=== PATIENT | female | born 1945 | race Caucasian/White ===

== ENCOUNTER 2018-09-14 12:53 | Outpatient (CLI) | payer MEDICARE ==
--- NOTE | 2018-09-14 16:30 | MRI ---
MRI LUMBAR SPINE: History: Back pain. M51.36 Technique: Multiplanar, multisequence noncontrast enhanced MRI images of the lumbar spine were obtain ed. FINDINGS: T12-L1: There is disc space height loss and disc desiccation. There is a broad based disc bulge with bilateral facet and ligamentum flavum hypertrophy resulting in mild central and lateral recess stenos is. The neural foramen are patent. L1-2: Disc desiccation is seen. There is broad based disc bulge with bilateral facet and ligamentum f lavum hypertrophy as well as congenitally short pedicles. This results in a moderate degree of centra l and lateral recess stenosis at L1-2. There is moderate bilateral neural foraminal narrowing. L2-3: Disc desiccation is seen. There is disc space height loss. There is broad based disc osteophyte complex compressing the thecal sac. Severe facet and ligamentum flavum hypertrophy is seen resulting in severe L2-3 central and lateral recess stenosis. There is moderate right and mild left sided neur al foraminal narrowing due to facet hypertrophic changes as well as the broad based disc bulge. L3-4: Disc desiccation is seen. There is broad based disc osteophyte complex centrally compressing th e thecal sac. Severe facet and ligamentum flavum hypertrophy is also present. This results in L3-4 ce ntral and lateral recess stenosis. There is moderate right and left neural foraminal narrowing due to facet hypertrophic changes. L4-5: Disc desiccation is seen. There is a broad based central disc protrusion. Bilateral facet and l igamentum flavum hypertrophy is seen. This results in a moderate degree of central and lateral recess stenosis. There is moderate right and severe left sided neural foraminal narrowing due to facet hype rtrophy as well as broad based disc protrusions extending to the neural foramen. L5-S1: Disc desiccation is seen. There is an annular fissure seen along the posterior aspect of the a nulus fibrosis. Mild bilateral facet hypertrophy is present. No significant degree of central stenosi s is seen. The neural foramen are patent. IMPRESSION: 1. Significant central stenosis and lateral recess stenosis at L2-3, L3-4, and to a lesser degree, th e L4-5 level. POS: DEBORAH
== END 2018-09-14 12:54 | disposition home or self-care (01) ==
LOC: TBSIIMAG 12:53
PROVIDERS: ATTEND Neurological Surgery
DX: M51.36 Other intervertebral disc degeneration, lumbar region (principal); M48.061 Spinal stenosis, lumbar region without neurogenic claudication
CPT/HCPCS: 72148

== ENCOUNTER 2018-10-03 16:33 | Outpatient (CLI) | payer MEDICARE ==
[2018-10-03 17:41] LABS: Hemoglobin 16.5 g/dL (12.0-16.0); Mean Corpuscular HGB CONC 31.9 g/dL (32.0-36.0); Mean Corpuscular Hemoglobin 28.8 pg (27.0-31.0); Mean Corpuscular Volume 90.3 fL (78.0-98.0); Mean Platelet Volume 7.5 fL (7.4-10.4); Platelet Count 315 thou/uL (130-400); RBC Distribution Width 12.8 % (11.5-14.5); Red Blood Cell (RBC) Count 5.72 mill/uL (4.20-5.40); White Blood Cell (WBC) Count 11.2 thou/uL (4.8-10.8)
[2018-10-03 18:05] LABS: Anion Gap 15 mmol/L (10-20); BUN (Urea Nitrogen) 18 mg/dL (9.8-20.1); Calc. Creatinine Clearance 0 mL/min (70-130); Calcium 10.2 mg/dL (7.8-10.44); Carbon Dioxide 24 mmol/L (23-31); Chloride 98 mmol/L (98-107); Estimated GFR-MDRD 76; Glucose 107 mg/dL (83-110); Potassium 3.8 mmol/L (3.5-5.1); Sodium 133 mmol/L (136-145)
--- NOTE | 2018-10-07 10:26 | EKG ---
Test Reason : Blood Pressure : / mmHG Vent. Rate : 086 BPM Atrial Rate : 086 BPM P-R Int : 160 ms QRS Dur : 074 ms QT Int : 370 ms P-R-T Axes : 060 059 035 degrees QTc Int : 442 ms Normal sinus rhythm Low voltage QRS Borderline ECG No previous ECGs available Confirmed by DR. Juan FOOTE ([id number]) on 10/07/2018 10:26:06 AM Referred By: RICK Confirmed By:DR. Juan FOOTE
== END 2018-10-03 16:34 | disposition home or self-care (01) ==
LOC: LABBT 16:33
PROVIDERS: ATTEND Neurological Surgery
DX: Z01.818 Encounter for other preprocedural examination (principal); M48.062 Spinal stenosis, lumbar region with neurogenic claudication
CPT/HCPCS: 80048; 85027; 93005; 93010

== ENCOUNTER 2018-10-04 06:01 | Observation (INO) | payer MEDICARE ==
[2018-10-04] MEDS ORDERED: CEFAZOLIN 2 GM/50 ML BAG ONE (06:17)
[2018-10-04] MEDS ORDERED: Midazolam HCl 2 mg/2 ml Vial ONE (06:55)
[2018-10-04] MEDS ORDERED: Fentanyl 250 MCG/5 ML VIAL ONE (06:55)
[2018-10-04] MEDS ORDERED: Lidocaine 4% Topical Sol 50 ML BOT ONE (07:18)
[2018-10-04] MEDS ORDERED: HYDROmorphone 2 MG/ML VIAL ONE (09:00)
[2018-10-04] MEDS ORDERED: Milk Of Magnesia 30 ML UDCUP PO PRN (09:16)
[2018-10-04] MEDS ORDERED: HYDROcodone/Acetaminophen 10/325 mg Tablet PO PRN (09:16)
[2018-10-04] MEDS ORDERED: diphenhydrAMINE 50 MG/ML VIAL IVP PRN (09:16)
[2018-10-04] MEDS ORDERED: Promethazine HCl 12.5 MG SUPP PR PRN (09:16)
[2018-10-04] MEDS ORDERED: diphenhydrAMINE 25 MG CAP PO PRN (09:16)
[2018-10-04] MEDS ORDERED: Mag-Al 1200 mg/1200 mg/30 ML UDCUP PO PRN (09:16)
[2018-10-04] MEDS ORDERED: tiZANidine HCl 4 MG TAB PO PRN (09:16)
[2018-10-04] MEDS ORDERED: Promethazine HCl 25 MG/ML VIAL IM PRN (09:16)
[2018-10-04] MEDS ORDERED: Promethazine 25 MG TAB PO PRN (09:16)
[2018-10-04] MEDS ORDERED: Morphine 4 MG/ML VIAL SLOW IVP PRN (09:16)
[2018-10-04] MEDS ORDERED: traMADol HCl 50 MG TAB PO PRN ×3 (09:16→12:07)
[2018-10-04] MEDS ORDERED: Ondansetron PF 4 MG/2 ML Vial IM PRN (09:22)
--- NOTE | 2018-10-04 09:41 | OP ---
DATE OF PROCEDURE: 10/04/2018 SURGEON: Ramana Irving M.D. DAIRY CONSULTANT: Mansi Clarke PA-C. PROCEDURE: L2 through L4 laminectomies. PROCEDURE IN DETAIL: The patient was brought to the operating room and intubated. She was rolled in the prone position on gel-filled chest rolls. An incision was made exposing L2 through L4 and our l evel was confirmed by x-ray. We performed complete L4, complete L3 and inferior L2 laminectomies, co mpletely decompressing L2 through L4. The wound was then extensively irrigated. Immaculate hemostas is was secured. Vancomycin powder was applied. The wound was closed in anatomic layers over a drain .
[2018-10-04] MEDS ORDERED: Fentanyl 100 MCG/2 ML VIAL ONE (09:44)
[2018-10-04] MEDS: Sodium Chloride 0.9% 1,000 ML IV SCH ×2 (10:48→23:26)
[2018-10-04 11:08] VITALS: BMI 29.7
--- NOTE | 2018-10-04 12:05 | PDOC.PN ---
- Subjective Encounter Start Date: 10/04/18 Encounter Start Time: 11:30 -: old records requested/rev Patient seen and examined. No new complaints. pt has chronic low back pain with lumbar stenosis, affecting her quality of life and pain was not controlled pt was admitted for lumbar laminectomy and done today we are consulted for medical management - Objective MAR Reviewed: Yes Vital Signs & Weight: Vital Signs (12 hours) Temp Pulse Resp BP Pulse Ox 10/04/18 11:35 98.0 F 82 12 118/76 92 L 10/04/18 10:44 98.2 F 84 18 144/84 H 98 Weight Weight 178 lb 12.8 oz Phys Exam - Physical Examination Constitutional: NAD HEENT: PERRLA, moist MMs, sclera anicteric Neck: no JVD, supple Respiratory: no wheezing, no rales, no rhonchi Cardiovascular: RRR, no significant murmur, no rub Gastrointestinal: soft, non-tender, no distention, positive bowel sounds Musculoskeletal: no edema, pulses present Neurological: non-focal, normal sensation, moves all 4 limbs Psychiatric: normal affect Skin: no rash, normal turgor Dx/Plan (1) S/P lumbar laminectomy Code(s): Z98.890 - OTHER SPECIFIED POSTPROCEDURAL STATES Status: Acute (2) Diabetes type 2, controlled Code(s): E11.9 - TYPE 2 DIABETES MELLITUS WITHOUT COMPLICATIONS Status: Chronic (3) Diverticulosis of colon Code(s): K57.30 - DVRTCLOS OF LG INT W/O PERFORATION OR ABSCESS W/O BLEEDING Status: Chronic (4) GERD (gastroesophageal reflux disease) Code(s): K21.9 - GASTRO-ESOPHAGEAL REFLUX DISEASE WITHOUT ESOPHAGITIS Status: Chronic (5) Hypertension Code(s): I10 - ESSENTIAL (PRIMARY) HYPERTENSION Status: Chronic (6) Lumbar stenosis Code(s): M48.061 - SPINAL STENOSIS, LUMBAR REGION WITHOUT NEUROGENIC ERIN Status: Chronic - Plan cont current plan of care, plan discussed w/ family * medication reviewed as below * symptomatic treatment * home medication reconciled * hyperglycemia protocol treatment * discussed with family bedside * medically stable * pain controlled * ambulate as tolerated * discharge per primary team. * code status addressed and pt is full code * hold BP meds for SBP <120 * add pepcid 20 mg po bid Review of Systems - Review of Systems ENT: negative: Ear Pain, Ear Discharge, Nose Pain, Nose Discharge, Nose Congestion, Mouth Pain, Mouth Swelling, Throat Pain, Throat Swelling, Other Respiratory: negative: Cough, Dry, Shortness of Breath, Hemoptysis, SOB with Excertion, Pleuritic Pain, Sputum, Wheezing Cardiovascular: negative: chest pain, palpitations, orthopnea, paroxysmal nocturnal dyspnea, edema, light headedness, other Gastrointestinal: negative: Nausea, Vomiting, Abdominal Pain, Diarrhea, Constipation, Melena, Hematochezia, Other Genitourinary: negative: Dysuria, Frequency, Incontinence, Hematuria, Retention , Other Musculoskeletal: negative: Neck Pain, Shoulder Pain, Arm Pain, Back Pain, Hand Pain, Leg Pain, Foot Pain, Other Skin: negative: Rash, Lesions, Demetrius, Bruising, Other - Medications/Allergies Allergies/Adverse Reactions: Allergies Allergy/AdvReac Type Severity Reaction Status Date / Time nut - unspecified Allergy Severe Anaphylaxis Verified 10/04/18 11:17 insect venom Allergy Intermediate Rash Verified 10/04/18 11:17 Medications: Current Medications Hydrocodone Bitart/Acetaminophen ([place] 10/325) 1 tab PO Q4H PRN PRN Reason: PAIN (1-3) Hydrocodone Bitart/Acetaminophen ([place] 10/325) 2 tab PO Q4H PRN PRN Reason: PAIN (4-6) Al Hydroxide/Mg Hydroxide (Maalox) 30 ml PO Q4H PRN PRN Reason: Heartburn or Indigestion Cefazolin Sodium/Dextrose (Ancef 2 Gm/50 Ml) 2 gm IVPB Q8HR [facility] Diphenhydramine HCl (Benadryl) 25 mg PO Q6H PRN PRN Reason: Itching Diphenhydramine HCl (Benadryl) 25 mg IVP Q6H PRN PRN Reason: Itching Sodium Chloride (Normal Saline 0.9%) 1,000 mls @ 75 mls/hr IV .[id number] [facility] Last Admin: 10/04/18 10:48 Dose: Not Given Magnesium Hydroxide (Milk Of Magnesium) 30 ml PO Q12H PRN PRN Reason: Constipation Morphine Sulfate (Morphine) 2 mg SLOW IVP Q1H PRN PRN Reason: Moderate Breakthrough Pain Morphine Sulfate (Morphine) 4 mg SLOW IVP Q1H PRN PRN Reason: SEVERE BREAKTHROUGH PAIN Ondansetron HCl (Zofran) 4 mg IM Q8H PRN PRN Reason: Nausea/Vomiting Promethazine HCl (Phenergan) 12.5 mg IM Q4H PRN PRN Reason: Nausea/Vomiting Promethazine HCl (Phenergan) 12.5 mg PO Q4H PRN PRN Reason: Nausea/Vomiting Promethazine HCl (Phenergan Suppository) 12.5 mg [place] Q4H PRN PRN Reason: Nausea/Vomiting Sodium Chloride (Flush - Normal Saline) 10 ml IVF PRN PRN PRN Reason: Saline Flush Tizanidine HCl (Zanaflex) 4 mg PO Q6H PRN PRN Reason: MUSCLE SPASM Tramadol HCl (Ultram) 50 mg PO Q6H PRN PRN Reason: PAIN (1-3) Tramadol HCl (Ultram) 100 mg PO Q6H PRN PRN Reason: PAIN (4-6)
[2018-10-04] MEDS ORDERED: Loperamide HCl 2 MG CAP PO PRN (12:06)
[2018-10-04] MEDS ORDERED: Diabetic Tussin 200 MG/10 ML UDCUP PO PRN (12:06)
[2018-10-04] MEDS ORDERED: HumaLOG 300 UNITS/3 ML VIAL SC PRN ×2 (12:06)
[2018-10-04] MEDS ORDERED: Zolpidem Tartrate 5 MG TAB PO PRN (12:06)
[2018-10-04] MEDS ORDERED: Senokot S 8.6-50 MG TAB PO PRN (12:06)
[2018-10-04] MEDS ORDERED: Cepastat Lozenges 1 LOZ PO PRN (12:06)
[2018-10-04] MEDS ORDERED: Eucerin (Mineral Oil/Petrolatum,White) 30 gm Jar TOP PRN (12:06)
[2018-10-04] MEDS ORDERED: Dextrose 5% in Water 1,000 ML IV PRN (12:06)
[2018-10-04] MEDS ORDERED: hydrALAZINE 20 MG/ML VIAL SLOW IVP PRN (12:06)
[2018-10-04] MEDS ORDERED: Sodium Chloride 0.65% Nasal 44 ML BOT EA NARE PRN (12:06)
[2018-10-04] MEDS ORDERED: Dextrose 50% Abboject 50 ML SYRINGE SLOW IVP PRN (12:06)
[2018-10-04] MEDS ORDERED: Bisacodyl 5 MG TAB PO PRN (12:06)
[2018-10-04] MEDS ORDERED: Artificial Tears 18 DROP/0.9 ML EA EYE PRN (12:06)
[2018-10-04] MEDS: CEFAZOLIN 2 GM/50 ML BAG IVPB SCH ×2 (13:16→21:11)
[2018-10-04] MEDS: HYDROcodone/Acetaminophen 10/325 mg Tablet PO PRN ×2 (13:16→17:43)
[2018-10-04] MEDS ORDERED: Lidocaine 1% PF 5 ML VIAL ONE (17:04)
[2018-10-04] MEDS ORDERED: Ketorolac Tromethamine 30 MG/ML VIAL ONE (17:04)
[2018-10-04] MEDS ORDERED: PROPOFOL 200 MG/20 ML VIAL ONE (17:04)
[2018-10-04] MEDS ORDERED: Glycopyrrolate 0.2 MG/ML 5 ML SYRINGE ONE (17:04)
[2018-10-04] MEDS ORDERED: Ondansetron PF 4 MG/2 ML Vial ONE (17:04)
[2018-10-04] MEDS ORDERED: Dexamethasone 20 MG/5 ML VIAL ONE (17:04)
[2018-10-04] MEDS: Famotidine 20 MG TAB PO SCH (21:11)
[2018-10-04] MEDS: Propranolol HCl LA 80 MG CAP PO SCH (21:11)
[2018-10-05] MEDS: HYDROcodone/Acetaminophen 10/325 mg Tablet PO PRN ×3 (00:44→11:31)
[2018-10-05] MEDS: CEFAZOLIN 2 GM/50 ML BAG IVPB SCH (06:22)
[2018-10-05] MEDS ORDERED: metFORMIN 500 MG TAB PO SCH (08:00)
[2018-10-05] MEDS: Famotidine 20 MG TAB PO SCH (08:57)
[2018-10-05] MEDS ORDERED: Triamterene/Hydrochlorothiazide 37.5 mg/25 mg Tablet PO SCH (09:00)
[2018-10-05] MEDS: Propranolol HCl LA 80 MG CAP PO SCH (09:04)
--- NOTE | 2018-10-05 09:32 | PDOC.PN ---
- Subjective Encounter Start Date: 10/05/18 Encounter Start Time: 08:10 -: old records requested/rev Patient seen and examined. No new complaints. No overnight events - Objective Resuscitation Status: Resuscitation Status FULL:Full Resuscitation MAR Reviewed: Yes Vital Signs & Weight: Vital Signs (12 hours) Temp Pulse Resp BP Pulse Ox 10/05/18 07:44 97.8 F 74 18 124/63 94 L 10/05/18 04:31 98.3 F 82 18 127/67 95 10/05/18 00:17 98.2 F 89 18 113/67 97 Weight Weight 178 lb 12.8 oz I&O: 10/04/18 10/05/18 10/06/18 06:59 06:59 06:59 Intake Total 2049 Output Total 135 Balance 1915 Additional Labs: Accuchecks 10/05/18 10/04/18 10/04/18 05:41 21:46 15:27 POC Glucose 180 H 270 H 218 H Phys Exam - Physical Examination Constitutional: NAD HEENT: PERRLA, moist MMs, sclera anicteric Neck: no JVD, supple Respiratory: no wheezing, no rales, no rhonchi Cardiovascular: RRR, no significant murmur, no rub Gastrointestinal: soft, non-tender, no distention, positive bowel sounds Musculoskeletal: no edema, pulses present Neurological: non-focal, normal sensation, moves all 4 limbs Psychiatric: normal affect, A&O x 3 Skin: no rash, normal turgor Dx/Plan (1) S/P lumbar laminectomy Code(s): Z98.890 - OTHER SPECIFIED POSTPROCEDURAL STATES Status: Acute (2) Diabetes type 2, controlled Code(s): E11.9 - TYPE 2 DIABETES MELLITUS WITHOUT COMPLICATIONS Status: Chronic (3) Diverticulosis of colon Code(s): K57.30 - DVRTCLOS OF LG INT W/O PERFORATION OR ABSCESS W/O BLEEDING Status: Chronic (4) GERD (gastroesophageal reflux disease) Code(s): K21.9 - GASTRO-ESOPHAGEAL REFLUX DISEASE WITHOUT ESOPHAGITIS Status: Chronic (5) Hypertension Code(s): I10 - ESSENTIAL (PRIMARY) HYPERTENSION Status: Chronic (6) Lumbar stenosis Code(s): M48.061 - SPINAL STENOSIS, LUMBAR REGION WITHOUT NEUROGENIC ERIN Status: Chronic - Plan cont current plan of care * medication reviewed as below * symptomatic treatment * medically stable * pt is planned for discharge * resume home meds on discharge. Review of Systems - Review of Systems ENT: negative: Ear Pain, Ear Discharge, Nose Pain, Nose Discharge, Nose Congestion, Mouth Pain, Mouth Swelling, Throat Pain, Throat Swelling, Other Respiratory: negative: Cough, Dry, Shortness of Breath, Hemoptysis, SOB with Excertion, Pleuritic Pain, Sputum, Wheezing Cardiovascular: negative: chest pain, palpitations, orthopnea, paroxysmal nocturnal dyspnea, edema, light headedness, other Gastrointestinal: negative: Nausea, Vomiting, Abdominal Pain, Diarrhea, Constipation, Melena, Hematochezia, Other Genitourinary: negative: Dysuria, Frequency, Incontinence, Hematuria, Retention , Other Musculoskeletal: negative: Neck Pain, Shoulder Pain, Arm Pain, Back Pain, Hand Pain, Leg Pain, Foot Pain, Other Skin: negative: Rash, Lesions, Demetrius, Bruising, Other - Medications/Allergies Allergies/Adverse Reactions: Allergies Allergy/AdvReac Type Severity Reaction Status Date / Time nut - unspecified Allergy Severe Anaphylaxis Verified 10/04/18 11:17 insect venom Allergy Intermediate Rash Verified 10/04/18 11:17 Medications: Current Medications Hydrocodone Bitart/Acetaminophen ([place] 10/325) 1 tab PO Q4H PRN PRN Reason: PAIN (1-3) Hydrocodone Bitart/Acetaminophen ([place] 10/325) 2 tab PO Q4H PRN PRN Reason: PAIN (4-6) Last Admin: 10/05/18 06:21 Dose: 2 tab Al Hydroxide/Mg Hydroxide (Maalox) 30 ml PO Q4H PRN PRN Reason: Heartburn or Indigestion Artificial Tears (Tears Naturale) 2 drop EA EYE PRN PRN PRN Reason: Dry Eyes Bisacodyl (Dulcolax) 10 mg PO DAILYPRN PRN PRN Reason: Constipation Captopril (Capoten) 50 mg PO BID [facility] Last Admin: 10/05/18 08:57 Dose: 50 mg Cefazolin Sodium/Dextrose (Ancef 2 Gm/50 Ml) 2 gm IVPB Q8HR [facility] Last Admin: 10/05/18 06:22 Dose: 2 gm Dextrose/Water (Dextrose 50%) 25 gm SLOW IVP PRN PRN PRN Reason: Hypoglycemia Diphenhydramine HCl (Benadryl) 25 mg PO Q6H PRN PRN Reason: Itching Diphenhydramine HCl (Benadryl) 25 mg IVP Q6H PRN PRN Reason: Itching Famotidine (Pepcid) 20 mg PO BID [facility] Last Admin: 10/05/18 08:57 Dose: 20 mg Glucagon (Glucagon) 1 mg IM PRN PRN PRN Reason: Hypoglycemia Guaifenesin (Robitussin Sf) 200 mg PO Q4H PRN PRN Reason: Cough Hydralazine HCl (Apresoline) 10 mg SLOW IVP Q4H PRN PRN Reason: SBP > 180 and HR < 70 Sodium Chloride (Normal Saline 0.9%) 1,000 mls @ 75 mls/hr IV .[id number] [facility] Last Admin: 10/04/18 23:26 Dose: Not Given Dextrose/Water (D5w) 1,000 mls @ 0 mls/hr IV .Q0M PRN PRN Reason: Hypoglycemia Insulin Human Lispro (Humalog) 0 units SC .MODERATE SLIDING SC PRN PRN Reason: Moderate Correctional Scale Insulin Human Lispro (Humalog) 0 units SC .BEDTIME SLIDING SC PRN PRN Reason: Bedtime Correctional Scale Loperamide HCl (Imodium) 2 mg PO PRN PRN PRN Reason: Diarrhea/Loose Stools Magnesium Hydroxide (Milk Of Magnesium) 30 ml PO Q12H PRN PRN Reason: Constipation Metformin HCl (Glucophage) 1,000 mg PO BID-[facility] Last Admin: 10/05/18 08:57 Dose: 1,000 mg Mineral Oil/White Petrolatum (Eucerin Cream) 0 gm TOP BIDPRN PRN PRN Reason: Dry Skin Morphine Sulfate (Morphine) 2 mg SLOW IVP Q1H PRN PRN Reason: Moderate Breakthrough Pain Morphine Sulfate (Morphine) 4 mg SLOW IVP Q1H PRN PRN Reason: SEVERE BREAKTHROUGH PAIN Ondansetron HCl (Zofran) 4 mg IM Q8H PRN PRN Reason: Nausea/Vomiting Promethazine HCl (Phenergan) 12.5 mg IM Q4H PRN PRN Reason: Nausea/Vomiting Promethazine HCl (Phenergan) 12.5 mg PO Q4H PRN PRN Reason: Nausea/Vomiting Promethazine HCl (Phenergan Suppository) 12.[address] Q4H PRN PRN Reason: Nausea/Vomiting Propranolol HCl (Inderal La) 80 mg PO BID [facility] Last Admin: 10/05/18 09:04 Dose: 80 mg Senna/Docusate Sodium (Senokot S) 2 tab PO BID PRN PRN Reason: Constipation Sodium Chloride (Flush - Normal Saline) 10 ml IVF PRN PRN PRN Reason: Saline Flush Sodium Chloride ([place] Nasal [place] 0.65%) 0 ml EA NARE QIDPRN PRN PRN Reason: Nasal Congestion Throat Lozenges (Cepastat Lozenges) 1 melva PO Q2H PRN PRN Reason: Sore Throat Tizanidine HCl (Zanaflex) 4 mg PO Q6H PRN PRN Reason: MUSCLE SPASM Tramadol HCl (Ultram) 50 mg PO Q6H PRN PRN Reason: PAIN (1-3) Tramadol HCl (Ultram) 100 mg PO Q6H PRN PRN Reason: PAIN (4-6) Tramadol HCl (Ultram) 50 mg PO Q4HR PRN PRN Reason: Pain Triamterene/HCTZ (Maxzide-25) 1 tab PO QAM [facility] Last Admin: 10/05/18 09:04 Dose: Not Given Zolpidem Tartrate (Ambien) 5 mg PO HSPRN PRN PRN Reason: Insomnia
--- NOTE | 2018-10-05 10:51 | DIS ---
DATE OF ADMISSION: 10/04/2018 DATE OF DISCHARGE: 10/05/2018 PRIMARY CARE PHYSICIAN: Jazzy Viramontes M.D. DISCHARGE DISPOSITION: Home. PRIMARY DISCHARGE DIAGNOSIS: Status post L2-L4 laminectomy. SECONDARY DISCHARGE DIAGNOSES: Diabetes type 2, chronic lumbar stenosis, chronic low back pain, [employer] [facility] consultant keshia diverticulosis of colon, gastroesophageal reflux disease, hypertension. PRIMARY PROCEDURE/OPERATION: Lumbar laminectomy by Dr. Irving. RADIOLOGICAL INVESTIGATION: None. SIGNIFICANT LABORATORY: None. DISCHARGE MEDICATIONS: Tramadol 50 mg q.4 hourly p.r.n., captopril 50 mg p.o. b.i.d., metformin 1000 mg p.o. b.i.d., Inderal 80 mg b.i.d., ranitidine 75 mg p.o. daily, triamterene with hydrochlorothiaz ty one capsule p.o. daily. CONTRAINDICATIONS: None. CODE STATUS: FULL CODE. INPATIENT CONSULTANTS: Dr. Irving was primary. Sound team was consulted for medical comanagement. TEST RESULTS PENDING ON DISCHARGE: None. ALLERGIES: No known drug allergy. ALLERGIES: Patient is allergic to NUT and INSECT VENOM. DISCHARGE PLAN: Post hospital, the patient will follow up with Dr. Irving in 2 weeks and patient w ill make appointment with Dr. Wander Purcell in 1 week. HOSPITAL COURSE: A 73-year-old female who has chronic lower back pain and she has lumbar stenosis wh ich is getting worse and that was affecting her daily quality of life. She failed all conservative t reatment as an outpatient basis. She was admitted for lumbar laminectomy, which was done on 10/04/[address] Irving without any complication. Postoperatively, the patient was observed in hospital. Sound Team was consulted for medical management. The patient's all medical problems remained stable . We continued all her home medication while in hospital as well as on discharge. The patient is seen and examined at bedside today. The patient is planned for discharge by primary t [facility] today.
[2018-10-05] MEDS: Sodium Chloride 0.9% 1,000 ML IV SCH (11:31)
[2018-10-05 11:56] VITALS: BP 120/66; TEMP 98.1
== END 2018-10-05 12:41 | disposition home or self-care (01) ==
LOC: SDC 06:01 → SURG B 07:16
PROVIDERS: ADMIT Neurological Surgery; ATTEND Neurological Surgery
PROC: 00NY0ZZ Release Lumbar Spinal Cord, Open Approach (ICD-10-PCS; principal; 2018-10-04)
DX: M48.062 Spinal stenosis, lumbar region with neurogenic claudication (principal); M54.16 Radiculopathy, lumbar region; E11.9 Type 2 diabetes mellitus without complications; M19.90 Unspecified osteoarthritis, unspecified site; K21.9 Gastro-esophageal reflux disease without esophagitis; K57.31 Diverticulosis of large intestine without perforation or abscess with bleeding; I10 Essential (primary) hypertension; Z79.84 Long term (current) use of oral hypoglycemic drugs; Z79.899 Other long term (current) drug therapy; Z91.018 Allergy to other foods; Z91.038 Other insect allergy status; Z98.890 Other specified postprocedural states
CPT/HCPCS: 63047; 76001; 82962 ×2; 96365; 96374 ×2; 96376 ×2; 97116; G0378; G8978; G8979; 36416; J0131; J1100; J1170; J1885; J2001; J2250; J2405; J2704; J3010; J3370